=== PATIENT | male | born 1990 | race Caucasian/White ===

== ENCOUNTER 2017-11-10 04:45 | Emergency (ER) | payer BC ==
[~2017-11-10] VITALS: Ht 167.6 cm; Wt 118.8 kg
--- NOTE | 2017-11-10 04:45 | NUR ---
Daphne jasso in [facility] - 11/10/17 at 0451 by CYRIL PT TAKEN TO CHAIR Crawley
--- NOTE | 2017-11-10 04:45 | NUR ---
PT BIB [facility]. PREBOOK. TAKEN TO CHAIR E
[2017-11-10 04:50] VITALS: BP 143/103
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
[2017-11-10 04:54] VITALS: BP 143/103
--- NOTE | 2017-11-10 05:07 | NUR ---
Patient being evaluated by physician at bedside.
--- NOTE | 2017-11-10 05:10 | NUR ---
PATIENT BIB [facility] DEPT. PATIENT EXAMINED BY DR. ALY. PATIENT MEDICALLY CLEARED AND RELEASED IN CUSTODY IN STABLE CONDITION. ORIGINAL PRE-BOOK FORM GIVEN TO OFFICER MICHELLE.
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
== END 2017-11-10 05:10 ==
LOC: MED 04:45
DX: Z02.89 Encounter for other administrative examinations (principal); V49.40XA Driver injured in collision with unspecified motor vehicles in traffic accident, initial encounter; Y93.89 Activity, other specified; Y92.488 Other paved roadways as the place of occurrence of the external cause; Y99.8 Other external cause status
CPT/HCPCS: 99283